=== PATIENT | male | born 1975 | race Two or more races ===

== ENCOUNTER 2021-03-09 10:23 | Emergency (ER) | payer OTHER ==
[2021-03-09 10:44] VITALS: BMI 24.3
[2021-03-09] MEDS ORDERED: METHOCARBAMOL 500 MG TABLET PO ONE (11:36)
[2021-03-09] MEDS ORDERED: LIDOCAINE 5% TOPICAL PATCH TP ONE (11:36)
[2021-03-09] MEDS ORDERED: LIDOCAINE 5% TOPICAL PATCH ONE (12:10)
[2021-03-09] MEDS ORDERED: METHOCARBAMOL 500 MG TABLET ONE (12:11)
[2021-03-09 14:47] VITALS: BP 137/79; PULSE 66; TEMP 98
== END 2021-03-09 14:25 | disposition home or self-care (01) ==
LOC: JER 10:23
DX: M54.41 Lumbago with sciatica, right side (principal)
CPT/HCPCS: 73523-TC-FY; 99284-25

== ENCOUNTER 2021-10-22 15:24 | Emergency (ER) | payer OTHER ==
[2021-10-22 15:56] VITALS: BP 138/88; PULSE 88; TEMP 98.4; BMI 25.1
[2021-10-22] MEDS ORDERED: KETOROLAC TROMETHAMINE 30 MG/1 ML VIAL IM ONE (17:27)
[2021-10-22] MEDS ORDERED: KETOROLAC TROMETHAMINE 30 MG/1 ML VIAL ONE (17:31)
== END 2021-10-22 18:34 | disposition home or self-care (01) ==
LOC: JER 15:24 → JERFT 15:24
PROC: 3E023GC Introduction of Other Therapeutic Substance into Muscle, Percutaneous Approach (ICD-10-PCS; principal; 2021-10-22)
DX: M54.50 Low back pain, unspecified (principal); M25.551 Pain in right hip; M25.552 Pain in left hip; W10.8XXA Fall (on) (from) other stairs and steps, initial encounter
CPT/HCPCS: 72170-TC-FY; 73521-TC-FY; 99284-25

== ENCOUNTER 2021-11-17 09:09 | Inpatient (IN) | payer OTHER ==
[2021-11-17] MEDS ORDERED: FAMOTIDINE 20 MG/50 ML IVPB 20 MG/50 ML MG IVPB ONE (10:45)
[2021-11-17] MEDS ORDERED: MAG HYDROX/AL HYDROX/SIMETH 30 ML UNIT-DOSE CUP PO ONE (10:45)
[2021-11-17] MEDS ORDERED: MAG HYDROX/AL HYDROX/SIMETH 30 ML UNIT-DOSE CUP ONE (10:47)
[2021-11-17] MEDS ORDERED: FAMOTIDINE 10 MG/ML VIAL IVPB ONE (10:48)
[2021-11-17 11:10] LABS: BASO % 0.3 % (0-2.0); EOS % 1.2 % (0-4.5); HEMATOCRIT 42.3 % (35.4-49); LYMPH % 13.9 % (8-40); MCH 28.4 pg (25.7-33.7); MEAN CELL VOLUME 86.1 fl (80-96); MEAN PLT VOLUME 7.9 fl (7.5-11.1); MONO % 15.1 % (3.8-10.2); NEUT % 69.5 % (42.8-82.8); PLATELET COUNT 176 10^3/uL (134-434); RBC 4.91 M/mm3 (4.00-5.60); RDW 14.2 % (11.9-15.9); WHITE BLOOD COUNT 7.1 K/mm3 (4.0-10.0)
[2021-11-17 11:27] LABS: INR 1.05 (0.83-1.09); PROTHROMBIN TIME (PATIENT) 12.1 SEC (9.7-13.0)
[2021-11-17 11:28] LABS: ACTIVATED PTT 32.7 SECONDS (25.2-36.5)
[2021-11-17 11:31] LABS: CALCIUM 9.2 mg/dL (8.5-10.1)
[2021-11-17 11:32] LABS: ALBUMIN 4.3 g/dl (3.4-5.0); BLOOD UREA NITROGEN 22.3 mg/dL (7-18)
[2021-11-17 11:35] LABS: CREATININE 1.1 mg/dL (0.55-1.3)
[2021-11-17 11:36] LABS: BILIRUBIN,TOTAL 0.4 mg/dL (0.2-1); TOT PROT 8.1 g/dl (6.4-8.2)
[2021-11-17] MEDS ORDERED: SODIUM CHLORIDE 500 ML IV STA (12:21)
[2021-11-17] MEDS: DEXTROSE 5%-NORMAL SALINE 1,000 ML IV SCH (15:04)
[2021-11-17] MEDS ORDERED: WARFARIN NA 5 MG TABLET PO SCH (18:00)
[2021-11-17] MEDS: ATORVASTATIN CA 40 MG TABLET (FP) PO SCH (21:31)
[2021-11-18 07:25] LABS: INR 1.13 (0.83-1.09)
[2021-11-18 07:31] LABS: HEMATOCRIT 39.2 % (35.4-49); MCH 28.6 pg (25.7-33.7); MEAN CELL VOLUME 86.5 fl (80-96); MEAN PLT VOLUME 8.7 fl (7.5-11.1); PLATELET COUNT 153 10^3/uL (134-434); RBC 4.54 M/mm3 (4.00-5.60); RDW 14.1 % (11.9-15.9); WHITE BLOOD COUNT 5.3 K/mm3 (4.0-10.0)
[2021-11-18 07:35] LABS: BLOOD UREA NITROGEN 14.9 mg/dL (7-18)
[2021-11-18 07:36] LABS: ALBUMIN 3.7 g/dl (3.4-5.0); MAGNESIUM 2.2 mg/dL (1.8-2.4)
[2021-11-18 07:40] LABS: BILIRUBIN,TOTAL 0.4 mg/dL (0.2-1)
[2021-11-18 09:13] LABS: PH,URINE 5.5 (5.0-8.0); URINE APPEARANCE CLEAR; URINE BILIRUBIN NEGATIVE (NEGATIVE); URINE COLOR YELLOW; URINE GLUCOSE (UA) 1+ (NEGATIVE); URINE KETONE NEGATIVE (NEGATIVE); URINE LEUK ESTERASE NEGATIVE (NEGATIVE); URINE NITRITE NEGATIVE (NEGATIVE); URINE PROTEIN NEGATIVE (NEGATIVE); URINE UROBILINOGEN 0.2 mg/dL (0.2-1.0)
[2021-11-18 10:18] LABS: ANISOCYTOSIS 0; HELMET CELLS 0; HOWELL-JOLLY BODIES 0; MACROCYTOSIS 0; OVALOCYTE 0; ROULEAU 0; SICKELED CELLS 0; TARGET CELLS 0; TEAR DROP CELLS 0; TOXIC GRANULATION 0
[2021-11-18] MEDS ORDERED: oxyCODONE HCL 5 MG TABLET PO PRN ×2 (13:52→13:53)
[2021-11-18 14:07] LABS: SARS-CoV-2 NAA Not Detected (Not Detected)
[2021-11-18] MEDS: DEXTROSE 5%-NORMAL SALINE 1,000 ML IV SCH (14:56)
[2021-11-18] MEDS ORDERED: HEPARIN NA (PORCINE) 5,000 UNITS/ML 1ML VIAL IVPUSH PRN ×2 (16:16)
[2021-11-18] MEDS ORDERED: HEPARIN INFUSION - 25,000 UNITS/500 ML INFUS.BAG IVPB SCH (16:30)
[2021-11-18] MEDS: ATORVASTATIN CA 40 MG TABLET (FP) PO SCH (22:37)
[2021-11-18] MEDS: CARVEDILOL 3.125 MG TABLET (FP) PO SCH (22:37)
[2021-11-19 08:27] LABS: BASO % 0.2 % (0-2.0); EOS % 2.1 % (0-4.5); HEMATOCRIT 36.6 % (35.4-49); HEMOGLOBIN 11.8 GM/dL (11.7-16.9); LYMPH % 38.9 % (8-40); MCH 27.8 pg (25.7-33.7); MCHC 32.3 g/dl (32.0-35.9); MEAN CELL VOLUME 86.1 fl (80-96); MEAN PLT VOLUME 8.7 fl (7.5-11.1); MONO % 13.2 % (3.8-10.2); NEUT % 45.6 % (42.8-82.8); PLATELET COUNT 160 10^3/uL (134-434); RBC 4.26 M/mm3 (4.00-5.60); RDW 13.6 % (11.9-15.9); WHITE BLOOD COUNT 5.1 K/mm3 (4.0-10.0)
[2021-11-19 08:35] LABS: INR 1.22 (0.83-1.09); PROTHROMBIN TIME (PATIENT) 14.1 SEC (9.7-13.0)
[2021-11-19 09:31] LABS: ALBUMIN 3.5 g/dl (3.4-5.0); BILIRUBIN,TOTAL 0.3 mg/dL (0.2-1); BLOOD UREA NITROGEN 11.4 mg/dL (7-18); CALCIUM 8.8 mg/dL (8.5-10.1); TOT PROT 6.6 g/dl (6.4-8.2)
[2021-11-19 10:30] LABS: ACTIVATED PTT 134.3 SECONDS (25.2-36.5)
[2021-11-19] MEDS: CARVEDILOL 3.125 MG TABLET (FP) PO SCH ×2 (10:54→21:54)
[2021-11-19] MEDS: LISINOPRIL 5 MG TABLET PO SCH (10:54)
[2021-11-19] MEDS: POLYETHYLENE GLYCOL (HEALTHYLAX) 3350 17 GM PACKET PO SCH ×2 (18:16→21:54)
[2021-11-19] MEDS: ACETAMINOPHEN 1000 MG/100 ML BAG IVPB PRN (20:25)
[2021-11-19] MEDS: ATORVASTATIN CA 40 MG TABLET (FP) PO SCH (21:54)
[2021-11-19] MEDS: INSULIN SLIDING SCALE (NOVOLOG) 1 VIAL SQ SCH (22:00)
[2021-11-20] MEDS: POLYETHYLENE GLYCOL (HEALTHYLAX) 3350 17 GM PACKET PO SCH ×4 (05:45→21:23)
[2021-11-20] MEDS: INSULIN SLIDING SCALE (NOVOLOG) 1 VIAL SQ SCH ×4 (06:09→21:23)
[2021-11-20 07:51] LABS: BASO % 0.3 % (0-2.0); EOS % 1.9 % (0-4.5); HEMATOCRIT 38.7 % (35.4-49); HEMOGLOBIN 12.5 GM/dL (11.7-16.9); LYMPH % 37.6 % (8-40); MCHC 32.3 g/dl (32.0-35.9); MEAN CELL VOLUME 86.4 fl (80-96); MEAN PLT VOLUME 8.7 fl (7.5-11.1); MONO % 10.6 % (3.8-10.2); NEUT % 49.6 % (42.8-82.8); PLATELET COUNT 179 10^3/uL (134-434); RBC 4.48 M/mm3 (4.00-5.60); RDW 14.2 % (11.9-15.9); WHITE BLOOD COUNT 5.5 K/mm3 (4.0-10.0)
[2021-11-20 08:20] LABS: INR 1.16 (0.83-1.09); PROTHROMBIN TIME (PATIENT) 13.4 SEC (9.7-13.0)
[2021-11-20 08:32] LABS: CALCIUM 9.4 mg/dL (8.5-10.1)
[2021-11-20 08:34] LABS: ALBUMIN 3.8 g/dl (3.4-5.0); BLOOD UREA NITROGEN 12.8 mg/dL (7-18); MAGNESIUM 1.8 mg/dL (1.8-2.4)
[2021-11-20 08:36] LABS: BILIRUBIN,TOTAL 0.5 mg/dL (0.2-1)
[2021-11-20 08:37] LABS: TOT PROT 7.3 g/dl (6.4-8.2)
[2021-11-20] MEDS: LISINOPRIL 5 MG TABLET PO SCH (09:26)
[2021-11-20] MEDS: CARVEDILOL 3.125 MG TABLET (FP) PO SCH ×2 (09:26→21:23)
[2021-11-20] MEDS: ACETAMINOPHEN 1000 MG/100 ML BAG IVPB PRN ×2 (14:19→21:22)
[2021-11-20] MEDS: ATORVASTATIN CA 40 MG TABLET (FP) PO SCH (21:23)
[2021-11-21] MEDS: POLYETHYLENE GLYCOL (HEALTHYLAX) 3350 17 GM PACKET PO SCH ×4 (05:37→23:14)
[2021-11-21] MEDS: INSULIN SLIDING SCALE (NOVOLOG) 1 VIAL SQ SCH ×4 (06:10→23:12)
[2021-11-21 08:19] LABS: INR 1.03 (0.83-1.09); PROTHROMBIN TIME (PATIENT) 11.9 SEC (9.7-13.0)
[2021-11-21 08:20] LABS: BASO % 0.3 % (0-2.0); EOS % 1.3 % (0-4.5); HEMATOCRIT 40.5 % (35.4-49); LYMPH % 32.7 % (8-40); MCH 27.8 pg (25.7-33.7); MCHC 32.1 g/dl (32.0-35.9); MEAN CELL VOLUME 86.6 fl (80-96); MEAN PLT VOLUME 8.7 fl (7.5-11.1); MONO % 7.7 % (3.8-10.2); PLATELET COUNT 214 10^3/uL (134-434); RBC 4.68 M/mm3 (4.00-5.60); RDW 13.8 % (11.9-15.9); WHITE BLOOD COUNT 6.6 K/mm3 (4.0-10.0)
[2021-11-21 08:22] LABS: ACTIVATED PTT 31.2 SECONDS (25.2-36.5)
[2021-11-21 08:52] LABS: ALBUMIN 4.1 g/dl (3.4-5.0)
[2021-11-21 08:54] LABS: BILIRUBIN,TOTAL 0.3 mg/dL (0.2-1); TOT PROT 7.7 g/dl (6.4-8.2)
[2021-11-21 08:55] LABS: CALCIUM 9.1 mg/dL (8.5-10.1); CREATININE 1.2 mg/dL (0.55-1.3)
[2021-11-21 08:56] LABS: MAGNESIUM 1.9 mg/dL (1.8-2.4)
[2021-11-21] MEDS: CARVEDILOL 3.125 MG TABLET (FP) PO SCH ×2 (09:42→23:12)
[2021-11-21] MEDS: LISINOPRIL 5 MG TABLET PO SCH (09:42)
[2021-11-21] MEDS ORDERED: METOCLOPRAMIDE HCL INJECTION 10 MG/2 ML VIAL IVPUSH ONE (12:52)
[2021-11-21] MEDS: ATORVASTATIN CA 40 MG TABLET (FP) PO SCH (23:12)
[2021-11-22] MEDS: POLYETHYLENE GLYCOL (HEALTHYLAX) 3350 17 GM PACKET PO SCH ×2 (05:48→14:00)
[2021-11-22] MEDS: INSULIN SLIDING SCALE (NOVOLOG) 1 VIAL SQ SCH ×2 (06:06→11:44)
[2021-11-22 08:32] LABS: BASO % 0.3 % (0-2.0); EOS % 1.2 % (0-4.5); HEMATOCRIT 40.3 % (35.4-49); HEMOGLOBIN 12.9 GM/dL (11.7-16.9); LYMPH % 26.5 % (8-40); MCH 27.8 pg (25.7-33.7); MCHC 32.1 g/dl (32.0-35.9); MEAN CELL VOLUME 86.7 fl (80-96); MEAN PLT VOLUME 8.1 fl (7.5-11.1); MONO % 6.6 % (3.8-10.2); NEUT % 65.4 % (42.8-82.8); PLATELET COUNT 207 10^3/uL (134-434); RBC 4.65 M/mm3 (4.00-5.60); RDW 13.8 % (11.9-15.9); WHITE BLOOD COUNT 7.2 K/mm3 (4.0-10.0)
[2021-11-22 08:38] LABS: INR 1.14 (0.83-1.09); PROTHROMBIN TIME (PATIENT) 13.1 SEC (9.7-13.0)
[2021-11-22] MEDS: LISINOPRIL 5 MG TABLET PO SCH (09:24)
[2021-11-22] MEDS: CARVEDILOL 3.125 MG TABLET (FP) PO SCH (09:26)
[2021-11-22 09:28] LABS: CALCIUM 9.6 mg/dL (8.5-10.1)
[2021-11-22 09:29] LABS: ALBUMIN 4.1 g/dl (3.4-5.0)
[2021-11-22 09:34] LABS: BILIRUBIN,TOTAL 0.8 mg/dL (0.2-1); TOT PROT 7.7 g/dl (6.4-8.2)
[2021-11-22 12:55] VITALS: BP 115/68; PULSE 107; TEMP 98.3
[2021-11-22 21:22] VITALS: BMI 23.6
== END 2021-11-22 14:22 | disposition home or self-care (01) | DRG 243 ==
LOC: JER 09:09 → JERBED 14:26 → J4W 20:48 → OBSVTOIN 11-19 08:09 → J7W 11-21 20:20
PROVIDERS: ADMIT Internal Medicine; ATTEND Nurse Practitioner Acute Care
PROC: 0DB78ZX Excision of Stomach, Pylorus, Via Natural or Artificial Opening Endoscopic, Diagnostic (ICD-10-PCS; 2021-11-20)
PROC: 0DB58ZX Excision of Esophagus, Via Natural or Artificial Opening Endoscopic, Diagnostic (ICD-10-PCS; 2021-11-20)
PROC: 0DB98ZX Excision of Duodenum, Via Natural or Artificial Opening Endoscopic, Diagnostic (ICD-10-PCS; principal; 2021-11-20 10:00)
DX: K22.9 Disease of esophagus, unspecified (principal); R10.13 Epigastric pain; R42 Dizziness and giddiness; I10 Essential (primary) hypertension; E11.9 Type 2 diabetes mellitus without complications; I42.8 Other cardiomyopathies; I11.0 Hypertensive heart disease with heart failure; I50.22 Chronic systolic (congestive) heart failure; I08.1 Rheumatic disorders of both mitral and tricuspid valves; E78.5 Hyperlipidemia, unspecified; G89.29 Other chronic pain; J44.9 Chronic obstructive pulmonary disease, unspecified; J45.909 Unspecified asthma, uncomplicated; R11.2 Nausea with vomiting, unspecified; K59.00 Constipation, unspecified; K29.70 Gastritis, unspecified, without bleeding; R68.81 Early satiety; R19.7 Diarrhea, unspecified; R63.0 Anorexia; Z68.23 Body mass index [BMI] 23.0-23.9, adult; Z87.11 Personal history of peptic ulcer disease; Z95.0 Presence of cardiac pacemaker; Z79.1 Long term (current) use of non-steroidal anti-inflammatories (NSAID); Z29.9 Encounter for prophylactic measures, unspecified
CPT/HCPCS: 36415; 71045-TC-FY; 74018-TC-FY; 74176-TC; 74177-TC; 80053; 81003; 82962; 83036; 83690; 83735; 84484; 85025; 85610; 85730; 86850; 86900; 86901; 87086; 88305-TC; 93005; 93010; 93306-TC; 99285-25; C9803-CS; G0378; J1644; Q9967; U0003; U0005

== ENCOUNTER 2022-09-03 14:17 | Emergency (ER) | payer OTHER ==
[2022-09-03 14:36] VITALS: BP 118/80; PULSE 82; RESP 16; TEMP 97.8; BMI 23.0
[2022-09-03] MEDS ORDERED: ACETAMINOPHEN 325 MG TABLET (FP) PO ONE (15:12)
[2022-09-03] MEDS ORDERED: ACETAMINOPHEN 325 MG TABLET (FP) ONE (15:16)
[2022-09-03] MEDS ORDERED: oxyCODONE HCL 5 MG TABLET PO ONE (16:10)
== END 2022-09-03 17:08 | disposition home or self-care (01) ==
LOC: JERFT 14:17
DX: S92.515A Nondisplaced fracture of proximal phalanx of left lesser toe(s), initial encounter for closed fracture (principal); W00.9XXA Unspecified fall due to ice and snow, initial encounter
CPT/HCPCS: 72170-TC-FY; 73502-TC-LT-FY; 73610-TC-LT-FY; 73630-TC-LT; 99284-25

== ENCOUNTER 2022-09-18 17:32 | Emergency (ER) | payer OTHER ==
[2022-09-18 17:54] VITALS: BP 117/76; PULSE 69; RESP 16; TEMP 97.9; BMI 23.1
[2022-09-18] MEDS ORDERED: KETOROLAC TROMETHAMINE 30 MG/1 ML VIAL IM ONE (19:04)
[2022-09-18] MEDS ORDERED: ACETAMINOPHEN 500 MG TABLET (FP) PO ONE (19:04)
[2022-09-18] MEDS ORDERED: ACETAMINOPHEN 500 MG TABLET (FP) ONE (19:12)
[2022-09-18] MEDS ORDERED: KETOROLAC TROMETHAMINE 30 MG/1 ML VIAL ONE (19:12)
== END 2022-09-18 20:24 | disposition home or self-care (01) ==
LOC: JERFT 17:32 → JER 17:32 → JERFT 20:24
PROC: 3E0233Z Introduction of Anti-inflammatory into Muscle, Percutaneous Approach (ICD-10-PCS; principal; 2022-09-18)
DX: M79.672 Pain in left foot (principal)
CPT/HCPCS: 73630-TC-LT; 99284-25

== ENCOUNTER 2023-06-22 11:44 | Emergency (ER) | payer OTHER ==
[2023-06-22 11:51] VITALS: BP 113/78; PULSE 71; RESP 18; TEMP 97.8; BMI 23.3
[2023-06-22] MEDS ORDERED: oxyCODONE HCL 5 MG TABLET PO ONE (14:54)
[2023-06-22] MEDS ORDERED: CYCLOBENZAPRINE HCL 10 MG TABLET (FP) PO ONE (14:55)
[2023-06-22] MEDS ORDERED: CYCLOBENZAPRINE HCL 10 MG TABLET (FP) ONE (14:59)
[2023-06-22] MEDS ORDERED: oxyCODONE HCL 5 MG TABLET ONE (15:00)
== END 2023-06-22 16:44 | disposition home or self-care (01) ==
LOC: JERFT 11:44 → JER 11:44 → JERFT 16:44
DX: M54.50 Low back pain, unspecified (principal)
CPT/HCPCS: 72100-TC-FY; 99283-25